=== PATIENT | female | born 1955 | race Two or more races ===

== ENCOUNTER 2022-06-19 05:20 | Day surgery (SDC) | payer OTHER ==
[~2022-06-19 05:20] MED LIST: AVALIDE 300-121 EACH PO; EVISTA60 MG PO; LIPITOR20 MG PO; VERAPAMIL ER240 MG PO
[2022-06-19] MEDS ORDERED: IBU400 MG PO (10:46)
[2022-06-19] MEDS ORDERED: ZITHROMAX500 MG PO (10:46)
== END 2022-06-19 15:40 | disposition home or self-care (01) ==
LOC: CIR.AMB 05:20
PROVIDERS: ATTEND Obstetrics & Gynecology
DX: N84.0 Polyp of corpus uteri (principal); N95.0 Postmenopausal bleeding; Z20.822 Contact with and (suspected) exposure to COVID-19

== ENCOUNTER 2023-12-31 06:42 | Day surgery (SDC) | payer OTHER ==
[~2023-12-31 06:42] MED LIST changes: +IBU400 MG PO; +ZITHROMAX500 MG PO
[2023-12-31] MEDS ORDERED: KETO10TA2 PO (09:34)
[2023-12-31] MEDS ORDERED: TYLENOL ARTHRI650 MG PO (09:34)
[2023-12-31] MEDS ORDERED: MIRALAX17 GM PO (09:34)
[2023-12-31] MEDS ORDERED: TRAMADOL HCL50 MG PO (09:34)
[2023-12-31] MEDS ORDERED: CEFAZOLIN SODIUM 1,000 MG VIAL IV ONE (10:45)
[2023-12-31] MEDS ORDERED: KETOROLAC TROMETHAMINE 30 MG VIAL IV ONE (10:45)
[2023-12-31] MEDS ORDERED: SUGAMMADEX SODIUM 200 MG/2 ML VIAL IV ONE (11:00)
== END 2023-12-31 14:15 | disposition home or self-care (01) ==
LOC: CIR.AMB 06:42
PROVIDERS: ATTEND Surgery
DX: K42.0 Umbilical hernia with obstruction, without gangrene (principal)
CPT/HCPCS: 49594; C1781

== ENCOUNTER → 2024-09-01 | Day surgery (SDC) | payer OTHER ==
[~2024-09-01] MED LIST changes: +CEFAZOLIN SODIUM 1,000 MG VIAL IV ONE; +CHLORTHALIDONE25 MG PO; +KETO10TA2 PO; +MIRALAX17 GM PO; +POVIDONE-IODINE 118 ML BOTT TOP ONE; +TRAMADOL HCL50 MG PO; +TYLENOL ARTHRI650 MG PO
== END | disposition home or self-care (01) ==
LOC: ADM 08-25 12:45 → CIR.AMB 07:00
PROVIDERS: ATTEND Obstetrics & Gynecology
DX: N95.0 Postmenopausal bleeding (principal); D25.0 Submucous leiomyoma of uterus; N84.0 Polyp of corpus uteri; N80.03 Adenomyosis of the uterus